=== PATIENT | male | born 1990 ===

== ENCOUNTER 2017-09-29 16:35 | Emergency (ER) | payer SELFPAY ==
[2017-09-29 17:38] LABS: #Eosinphils 0.1 thou/uL (0.0-0.7); #Lymphocytes 1.6 thou/uL (1.20-3.40); #Monocytes 0.6 thou/uL (0.11-0.59); #Neutrophils 7.5 thou/uL (1.40-6.50); %Eosinophils 0.9 % (0.0-10.0); %Lymphocytes 16.7 % (21.0-51.0); %Monocytes 5.7 % (0.0-10.0); %Neutrophils 76.7 % (42.0-75.0); Hemoglobin 15.9 g/dL (14.0-18.0); Mean Corpuscular HGB CONC 34.2 g/dL (32.0-36.0); Mean Corpuscular Hemoglobin 30.8 pg (27.0-31.0); Mean Corpuscular Volume 89.9 fl (80.0-94.0); Mean Platelet Volume 6.3 fL (7.4-10.4); Platelet Count 239 thou/uL (130-400); RBC Distribution Width 11.8 % (11.5-14.5); Red Blood Cell (RBC) Count 5.15 mill/uL (4.70-6.10); White Blood Cell (WBC) Count 9.8 thou/uL (4.8-10.8)
--- NOTE | 2017-09-29 17:56 | RAD ---
LEFT ELBOW 4 VIEWS: Date: 09/29/17 PROVIDED CLINICAL HISTORY: Left elbow pain without injury. FINDINGS: Corticated ossific focus adjacent to the medial epicondyle likely reflects sequelae of remote injury. There is no definite evidence for fracture or other acute osseous abnormality. There is prominence o f the soft tissues at the posterior aspects of the olecranon. There is no definite evidence for elbow joint capsular distention. IMPRESSION: Soft tissue prominence over the olecranon. Correlate with concerns for bursitis. POS: [facility]AL
[2017-09-29 18:01] LABS: ALT (SGPT) 28 U/L (8-55); AST (SGOT) 23 U/L (5-34); Albumin 4.6 g/dL (3.5-5.0); Alkaline Phosphatase 69 U/L (40-150); Anion Gap 11 mmol/L (10-20); BUN (Urea Nitrogen) 12 mg/dL (8.9-20.6); Bilirubin, Total 0.9 mg/dL (0.2-1.2); Calc. Creatinine Clearance 0 mL/min (70-130); Calcium 9.4 mg/dL (7.8-10.44); Carbon Dioxide 28 mmol/L (22-29); Chloride 103 mmol/L (98-107); Estimated GFR-MDRD 82; Globulin 2.7 g/dL (2.4-3.5); Glucose 100 mg/dL (70-105); Potassium 3.8 mmol/L (3.5-5.1); Protein, Total 7.3 g/dL (6.0-8.3); Sodium 138 mmol/L (136-145)
== END 2017-09-29 19:27 | disposition home or self-care (01) ==
LOC: ERS 16:35
DX: M70.22 Olecranon bursitis, left elbow (principal)
CPT/HCPCS: 36415; 80053; 85025; 86140; 87040